=== PATIENT | male | born 1985 | race Caucasian/White ===

== ENCOUNTER 2016-12-29 18:38 | Observation (INO) ==
[2016-12-29 19:46] LABS: MANUAL DIFF NEEDED? NO
[2016-12-29 19:50] LABS: BASO% 0.9 % (0.0-0.8); EOS# 0.53 X1000 (0.0-0.7); EOS% 6.3 % (0.0-10.0); HEMATOCRIT 44.4 % (42.0-52.0); HEMOGLOBIN 14.9 g/dL (14.0-18.0); IMM GRAN# 0.06 X1000 (0.0-0.04); IMM GRAN% 0.7 % (0.0-0.5); LYMPH# 2.07 X1000 (1.2-3.4); LYMPH% 24.6 % (20.5-51.1); MCH 30.3 PG (27-31); MCHC 33.6 g/dL (33-37); MCV 90.4 FL (81-99); MONO# 0.78 X1000 (0.11-0.59); MONO% 9.3 % (1.7-9.3); MPV 10.7 FL (7.4-10.4); NEUT% 58.2 % (42.2-75.2); PLT 209 X1000 (130-400); RBC 4.91 XMIL (4.7-6.1)
[2016-12-29 19:59] LABS: UR AMPHETAMINES QUAL PRESUMPTIVE POSITIVE (NONE DETECT); UR BARBITUATES QUAL NONE DETECTED (NONE DETECT); UR BENZODIAZEPIN QUAL PRESUMPTIVE POSITIVE (NONE DETECT); UR CANNABINOIDS QUAL NONE DETECTED (NONE DETECT); UR COCAINE QUAL NONE DETECTED (NONE DETECT); UR MDMA QUAL NONE DETECTED (NONE DETECT); UR METHADONE QUAL NONE DETECTED (NONE DETECT); UR METHAMPHETAMINE QUAL NONE DETECTED (NONE DETECT); UR OPIATES QUAL NONE DETECTED (NONE DETECT); UR OXYCODONE QUAL NONE DETECTED (NONE DETECT); UR PCP QUAL NONE DETECTED (NONE DETECT); UR TCA QUAL NONE DETECTED (NONE DETECT)
[2016-12-29 20:00] LABS: BILIRUBIN URINE NEGATIVE (NEGATIVE); BLOOD URINE NEGATIVE (NEGATIVE); CLARITY SL. CLOUDY (CLEAR); COLOR AMBER; GLUCOSE URINE NEGATIVE (NEGATIVE); LEUKOCYTES URINE TRACE (NEGATIVE); NITRITE URINE NEGATIVE (NEGATIVE); PROTEIN URINE TRACE mg/dL (NEGATIVE); SP GRAVITY URINE 1.015; URINE CULTURE PL NEEDED? YES; URINE EPITHELIAL CELLS <10 /HPF (<10); URINE SOURCE CLEAN CATCH; URINE WBC 20-40 /HPF (<10); UROBILINOGEN URINE NORMAL
[2016-12-29 20:16] LABS: AGAP 13; ALBUMIN 4.3 g/dL (3.5-5.0); ALKALINE PHOSPHATASE 56 U/L (32-122); BUN 18 mg/dL (8-22); CALCIUM 9.3 mg/dL (8.8-10.2); CHLORIDE 101 mmol/L (98-107); COSMO 276; GOT 33 U/L (10-34); GPT 52 U/L (10-44); POTASSIUM 4.7 mmol/L (3.5-5.1); SODIUM 137 mmol/L (136-145); TCO2 23 mmol/L (25-35); TOTAL PROTEIN 7.4 g/dL (6.3-8.3)
[2016-12-29] MEDS ORDERED: NS 1,000 ML IV ONE (20:28)
[2016-12-29] MEDS ORDERED: ZOFRAN IV PRN (20:28)
[2016-12-29] MEDS ORDERED: TYLENOL PO PRN (20:28)
[2016-12-30] MEDS ORDERED: D50W SYRINGE IV PRN (06:35)
--- NOTE | 2016-12-30 06:35 | Diag Imaging Result Document ---
PROCEDURE NAME: HEAD W/O CONTRAST - 12/29/2016 CT BRAIN WITHOUT CONTRAST: FINDINGS: No parenchymal hemorrhage. No epidural or subdural hematoma. No subarachnoid hemorrhage. No mass identified on this noncontrasted exam. No hydrocephalus. No sinus opacification. IMPRESSION: No hemorrhage. Negative brain CT without contrast. A preliminary report was given at 8:06 p.m.
--- NOTE | 2016-12-30 08:54 | PROGRESS NOTE ---
DATE: 12/30/2016 SUBJECTIVE: The patient is still somewhat confused this morning, although he is awake. He does attempt to respond to commands, but extremely slow to answer. PHYSICAL EXAMINATION: Vital Signs: Temperature 97, pulse 70, respiratory rate 18, blood pressure 106/70, sat 99% on room air. General: Patient is awake, alert. He is in no respiratory distress. He does, as noted above, attempt to respond to commands, but he is slow to answer. Appears to be oriented when he does answer the questions. HEENT: Normocephalic. Neck: Supple. Cardiovascular: Regular rate. Chest: Relatively clear. Abdomen: Soft. Extremities: He is noted to move all 4 extremities with no focal deficits. Skin: Warm and dry with no rashes. DIAGNOSTIC DATA: CBC and CMP essentially normal. [place] is noted to be elevated at 1.78. Valproic acid is low at 44. ASSESSMENT: 1. Elevated lithium level secondary to taking [place] and probably also the addition of Mobic elevated his [place]. 2. Acute mental status change likely secondary to lithium. 3. Hypertension. 4. Chronic depression. 5. Others. PLAN: We will restart most of his home medications. Will hold his Mobic, hold his lithium, and continue to follow. We will also hold Effexor. Further orders as needed. cc: Miguel Rojas MD
[2016-12-30] MEDS ORDERED: PRINIVIL PO SCH (09:00)
[2016-12-30] MEDS ORDERED: EFFEXOR PO SCH (09:00)
[2016-12-30] MEDS ORDERED: PROZAC PO SCH (09:00)
[2016-12-30] MEDS: KLONOPIN PO SCH ×3 (09:06→17:58)
[2016-12-30] MEDS: GLUCOPHAGE PO SCH ×2 (09:06→17:58)
[2016-12-30] MEDS: NORVASC PO SCH ×2 (09:06→21:37)
[2016-12-30] MEDS: PRINIVIL PO SCH ×2 (09:06→21:37)
[2016-12-30] MEDS: WELLBUTRIN SR PO SCH (09:06)
--- NOTE | 2016-12-30 16:27 | HISTORY AND PHYSICAL ---
CHIEF COMPLAINT: Altered mental status. Slurred speech. HISTORY OF PRESENT ILLNESS: This is a 31-year-old male with a history of bipolar depression, with failed ECT treatments, severe depression, and anxiety. He presents to the emergency room with his , who states that the patient began taking lithium and Depakote on December 15. He has been followed weekly by his psychiatrist, Dr. Bryan Herndon. Labs were checked last week and lithium levels were within normal limits. Over the last 24 hours, he has become more sedated. He has had urinary incontinence and slurred speech. He was found to have a lithium level of 1.[address] of the head and showing negative CT per radiology read. In the emergency room he was given IV hydration and admitted for further evaluation and treatment. PAST MEDICAL HISTORY: Asthma, diabetes mellitus, seizures as a child, obstructive sleep apnea, bipolar disorder with the severe depression, anxiety, ADHD, and agoraphobia with panic disorder. PAST SURGICAL HISTORY: Denies. SOCIAL HISTORY: Denies alcohol, tobacco, or illicit drug use. He does live with his . ALLERGIES: No known drug allergies. HOME MEDICATIONS: Wellbutrin SR 150 q.a.m., Abilify 20 at bedtime, Norvasc 5 b.i.d., allopurinol 300 at bedtime, Glucophage 500 b.i.d., Urocit-K 10 mEq q.a.m., clonazepam 2 p.o. t.i.d., lithium carbonate 1 b.i.d., Depakote ER 2500 at bedtime, Adderall 30 one b.i.d., Effexor one tablet q.a.m., Prozac one every other day, Mobic 150 q.p.m., lisinopril 20 b.i.d., and Remeron 15 at bedtime. REVIEW OF SYSTEMS: A 14 point review of systems is discussed with the . As stated in the history of present illness, the patient is unable to answer at present. PHYSICAL EXAMINATION: GENERAL: This is a 31-year-old male who is sitting in the bed, lethargic, in no distress. VITAL SIGNS: Blood pressure is 127/80 with a heart rate of 80, respirations are 18, temperature is 97.8 degrees, with room air saturations of 96. CARDIOVASCULAR: Regular rate and rhythm. S1 and S2 are appreciated. PULMONARY: Breath sounds are clear. No increased work of breathing noted. GASTROINTESTINAL: Soft, nontender, nondistended with bowel sounds in all 4 quadrants. MUSCULOSKELETAL: Good range of motion of joints. EXTREMITIES: No clubbing, cyanosis, or edema. Pulses are palpable. Calves are nontender. NEUROLOGIC: He is alert. He is oriented. He is slow to respond to questions to healthcare workers. He does respond a little faster to family members. DIAGNOSTICS: WBC is 8.4, with a hemoglobin of 14.9, hematocrit 44.4, and platelets of 209,000. Sodium is 137, potassium 4.7. BUN 18, creatinine 1.2, with a glucose of 259. [place] level was 1.78, with valproic acid 44.7, and urine drug screen positive for amphetamines and benzodiazepines. CT of the head, as stated above. ASSESSMENT AND PLAN: 1. Elevated lithium level secondary to taken lithium, with the addition of Mobic and lisinopril. We will hold his lithium. We will stop his Mobic and the patient and his will be instructed to discontinue Mobic. We will continue lisinopril. 2. Acute mental status change, likely secondary to lithium. 3. Hypertension. Will identify his home medications and continue as appropriate. 4. Chronic depression, aware. 5. Bipolar II disorder with depression. We will continue medications. 6. Attention deficit hyperactivity disorder. We will continue his home medications. 7. Generalized anxiety disorder. Aware. 8. Agoraphobia with panic disorder, aware. I did discuss the patient's medications and hospital course with Dr. Bryan Herndon, his psychiatrist. Danya Herndon has recommended that we hold his lithium and that on discharge the patient be instructed to restart his lithium at half dose one week after discharge. He is recommended that we change Depakote to 2000 mg a day, with added 1000 mg at noon. He has recommended the patient not restart Mobic. He did state to continue lisinopril and lithium dose can be adjusted around this, as he does need this for hypertension. We did review the patient's home list of medications at this time. We will have the patient on clear liquids and advance as tolerated if the patient wakes. Further treatments pending hospital course. Dictated by RUPESH Zuleta for Miguel Rojas MD cc: RUPESH Zuleta MD [facility]
[2016-12-30] MEDS ORDERED: REMERON PO SCH (21:00)
[2016-12-30] MEDS ORDERED: ABILIFY PO SCH (21:00)
[2016-12-30] MEDS ORDERED: ZYLOPRIM PO SCH (21:00)
[2016-12-30] MEDS ORDERED: DEPAKOTE ER PO SCH ×2 (21:00)
[2016-12-31 07:05] LABS: HEMOGLOBIN 14.3 g/dL (14.0-18.0); MCH 30.6 PG (27-31); MCHC 33.3 g/dL (33-37); MCV 92.1 FL (81-99); MPV 10.4 FL (7.4-10.4); RBC 4.67 XMIL (4.7-6.1)
[2016-12-31 07:37] LABS: AGAP 10; ALKALINE PHOSPHATASE 57 U/L (32-122); BUN 19 mg/dL (8-22); CHLORIDE 100 mmol/L (98-107); COSMO 271; GOT 32 U/L (10-34); GPT 50 U/L (10-44); POTASSIUM 4.6 mmol/L (3.5-5.1); SODIUM 135 mmol/L (136-145); TCO2 25 mmol/L (25-35); TOTAL PROTEIN 6.9 g/dL (6.3-8.3)
[2016-12-31] MEDS: GLUCOPHAGE PO SCH (07:42)
[2016-12-31] MEDS ORDERED: D5 NS 1,000 ML IV SCH ×2 (08:00→08:02)
--- NOTE | 2016-12-31 08:36 | DISCHARGE SUMMARY ---
ADMISSION DATE: 12/29/2016 DISCHARGE DATE: DISCHARGE DIAGNOSES: 1. Elevated lithium level. [place] is improving. He currently is down to 1.54 from a peak of 1.7. This was likely secondary to the addition of Mobic and lisinopril. 2. Altered mental status, improved. Patient is awake and alert. He is back to his baseline per his family. 3. Hypertension. 4. Chronic depression. 5. Bipolar type 2. 6. Attention deficit disorder. 7. Generalized anxiety disorder. 8. Agoraphobia. PLAN: The patient will be discharged home. We will continue to hold his lithium for now. His psych medications will be adjusted by Dr. Bryan Herndon as an outpatient. He will follow up with Dr. Herndon within the next week to restart his lithium. Discussed with Mr. Haney and his family that he cannot take anti-inflammatories with lithium. We will continue his lisinopril and simply adjust the dose around it. He typically will be adjusted per Dr. Bryan Herndon's orders. TIME SPENT: Thirty-five minutes was spent in discharge planning. cc: Miguel Rojas MD
[2016-12-31] MEDS ORDERED: DEPAKOTE ER PO SCH ×2 (09:00→21:00)
[2016-12-31] MEDS: WELLBUTRIN SR PO SCH (09:10)
[2016-12-31] MEDS: KLONOPIN PO SCH ×2 (09:10→13:41)
[2016-12-31] MEDS: NORVASC PO SCH (09:10)
[2016-12-31] MEDS: PRINIVIL PO SCH (09:10)
[2016-12-31 14:06] VITALS: BP 124/71
--- NOTE | 2017-01-27 01:27 | PROVIDER DOCUMENTATION ---
This chart was entered by Fani Guerrero Scribe, acting as scribe for Abdiel Jacques MD. HPI-General Adult - General Chief Complaint: Altered Mental Status Stated Complaint: "DR TOOK OF MEDS" Time Seen by Provider: 12/29/16 18:55 Source: patient, family Allergies/Adverse Reactions: Patient Allergies Allergy/AdvReac Type Severity Reaction Status Date / Time No Known Allergies Allergy Verified 07/13/16 13:24 Home Medications: Home Medication List Medication Instructions Recorded Confirmed Last Taken Type Lisinopril 20 mg PO BID 07/08/16 12/30/16 12/29/16 History Mirtazapine [Remeron] 15 mg PO QHS 07/13/16 12/30/16 12/28/16 History Aripiprazole [Abilify] 20 mg PO QHS 12/29/16 12/30/16 12/28/16 History Dextroamphetamine/Amphetamine 1 tab PO BID 12/29/16 12/30/16 12/29/16 History [Adderall 30 mg Tablet] Fluoxetine HCl [Prozac] 1 cap PO EVERY OTHER DAY 12/29/16 12/30/16 12/28/16 History Venlafaxine [Effexor] 1 tab PO QAM 12/29/16 12/30/16 12/29/16 History Allopurinol 300 mg PO QPM 12/30/16 12/30/16 12/28/16 History Amlodipine Besylate [Norvasc] 5 mg PO BID 12/30/16 12/30/16 12/29/16 History Bupropion S.r. [Wellbutrin Sr] 150 mg PO QAM 12/30/16 12/30/16 12/29/16 History Clonazepam 2 mg PO TID 12/30/16 12/30/16 12/29/16 History Metformin [Glucophage] 500 mg PO BID 12/30/16 12/30/16 12/29/16 History Metoprolol Succinate E.r. [Toprol 100 mg PO DAILY 12/30/16 12/30/16 12/29/16 History Xl] Potassium Citrate [Urocit-K] 10 meq PO QAM 12/30/16 12/30/16 12/29/16 History Divalproex E.r. [Depakote ER] 1,000 mg PO DAILY #60 tablet 12/31/16 Unknown Rx Divalproex E.r. [Depakote ER] 2,000 mg PO QHS tablet 12/31/16 Unknown Rx [place] Carbonate 450 mg PO DAILY #30 tablet.er 12/31/16 Unknown Rx - History of Present Illness -Gen Adult Nature of Presenting Problems: 31 year old M presents to the ED with a cc of "felling bad" with an onset of 1.5 days. PT states that his doctor has taken him off his medications. Depakote and [place] was added on 12/15. states that he was seen last Wednesday for the stumbling and falling around. She states that lab last week showed all levels were normal. Pt denies taking anymore or any less. PT states "I feel like I have changed but I haven't." PT states that he feels like he is confused. Onset/Duration: reports: 24 hours ago Timing: reports: still present Review of Systems - Adult - REVIEW OF SYSTEMS - ADULT Constitutional: denies: chills, fever Eyes: reports: no symptoms reported Ears, Nose, Mouth & Throat: reports: no symptoms reported Cardiovascular: denies: chest pain, palpitations Respiratory: denies: cough, shortness of breath Gastrointestinal: reports: no symptoms reported Genitourinary: reports: no symptoms reported Musculoskeletal: denies: muscle aches, muscle weakness Integumentary: denies: skin sores/ulcer, skin thickening Neurological: reports: slurred speech. denies: dizziness/vertigo, headache/ migraines, syncope Psychiatric: reports: no symptoms reported Endocrine: reports: no symptoms reported Hematologic/Lymphatic: reports: no symptoms reported Allergic/Immunologic: reports: no symptoms reported All Other Systems: Reviewed and Negative Past History - Adult - PAST MEDICAL HISTORY-ADULT Review of Records: reports: Nursing Assessment Review, Medications Reviewed Major Childhood Illnesses: reports: denies history Respiratory: reports: asthma, sleep apnea Neurological: reports: Seizures/Epilepsy Psychiatric: reports: bipolar Endocrine/Immune: reports: Diabetes Physical Exam-General - PHYSICAL EXAM-ADULT Initial Vital Signs Reviewed: Yes - CONSTITUTIONAL General Appearance: obtunded - RESPIRATORY Respiratory: chest non-tender, lungs clear, normal breath sounds - CARDIOVASCULAR Cardiovascular: normal peripheral pulses, regular rate, rhythm, no edema - GASTROINTESTINAL (ABDOMEN) Abdominal Exam: normal bowel sounds, non tender, soft - SKIN Integumentary: normal color, normal turgor, warm/dry - NEUROLOGIC Neurologic: other (slurred and slow speech) Progress - PLAN OF CARE/RESULTS Progress/Plan/Lab Results: Vital Signs - 8 hr 12/29/16 18:40 Temperature 97.8 F Pulse Rate 80 Respiratory Rate 18 Blood Pressure 127/80 O2 Sat by Pulse Oximetry 96 Orders Category Date Time Status CBC WITH DIFF [HEME] Stat Lab 12/29/16 18:46 Ordered COMPREHENSIVE METABOLIC PANEL [CHEM] Stat Lab 12/29/16 18:46 Ordered LITHIUM [TDM] Stat Lab 12/29/16 18:[address] W/POSS RFLX CULT [URINALYSIS] Stat Lab 12/29/16 18:46 Uncollected URINE DRUG SCREEN PL Stat Lab 12/29/16 18:46 Uncollected VALPROIC ACID [TDM] Stat Lab 12/29/16 18:45 Ordered Result Diagrams: 12/31/16 06:55 12/31/16 06:55 - CT/MRI 1 CT Study: Head Impression: Normal (No visible acute process, hemorrhage, or mass effect: Dr. Corral(radiologist)) - CONSULTS/PCP/HOSPITALIST Notification #1 *Consult/PCP/Hospitalist*: Dr. Rojas Time Discussed: 20:05 Consult Disposition: Will see in ED, Admit Departure - Departure Time of Disposition Decision: 01:26 DIAGNOSIS: Altered mental status Qualifiers: Altered mental status type: somnolence Qualified Code(s): R40.0 - Somnolence Disposition: ADMITTED INPATIENT 09 Certified Medical Emergency: Emergent Condition: Stable - Critical Care Note This patient required my direct & personal management of CC.: No This chart was documented by the indicated scribe, (Fani Guerrero Scribe) and accurately reflects the services I performed and decisions made by me, Abdiel Jacques MD, as attested by the provider's signature.
== END 2016-12-31 05:20 | disposition home or self-care (01) ==
LOC: P.MEDSURG 18:38 → P.ED 18:38 → SUATTDRO 22:04 → P.MEDSURG 12-30 08:30
PROVIDERS: ATTEND Family Medicine